=== PATIENT | male | born 1940 | race Caucasian/White ===

== ENCOUNTER 2021-08-27 08:34 | Emergency (ER) | payer OTHER ==
[~2021-08-27 08:34] MED LIST: ASPIRIN EC81 MG PO; COREG 25MG TAB25 MG PO; COZAAR 50MG TAB50 MG PO; DOXYCYCLINE HY100 MG PO; HYGROTON TAB 2525 MG PO; HYTRIN CAP 5 MG5 MG PO; IMDUR ER TAB 6060 MG PO; ISOSORBIDE MONO30 MG PO; PLAVIX75 MG PO; REPATHA 140MG/ML IM; TESSALON PERLE100 MG PO
== END 2021-08-27 09:55 | disposition home or self-care (01) ==
LOC: ER1 08:34
DX: J06.9 Acute upper respiratory infection, unspecified (principal); Z20.822 Contact with and (suspected) exposure to COVID-19; I10 Essential (primary) hypertension; Z90.49 Acquired absence of other specified parts of digestive tract
CPT/HCPCS: 99283; U0002

== ENCOUNTER 2022-01-05 08:31 | Emergency (ER) | payer OTHER | END 2022-01-05 09:52 | disposition home or self-care (01) | LOC: ER1 08:31 | DX: M54.2 Cervicalgia (principal); I10 Essential (primary) hypertension | CPT/HCPCS: 99283 ==

== ENCOUNTER → 2022-02-28 | Outpatient (CLI) | payer OTHER | LOC: CT 02-22 11:00 | DX: R10.30 Lower abdominal pain, unspecified (principal); R19.7 Diarrhea, unspecified; N32.89 Other specified disorders of bladder; N20.0 Calculus of kidney | CPT/HCPCS: Q9967 ==